=== PATIENT | female | born 2000 | race Caucasian/White ===

== ENCOUNTER 2025-01-15 13:05 | Emergency (ER) | payer OTHER, SELFPAY ==
[2025-01-15 13:08] VITALS: BP 118/86
[2025-01-15 15:05] LABS: Hematocrit 38.5 % (37.0-47.0); Hemoglobin 13.6 g/dL (12.0-16.0); Mean Corp Hgb Conc. 35.3 g/dL (33.0-37.0); Mean Corpuscular Volume 88.1 fL (81.0-99.0); Platelet Count 216 10^3/uL (130-400); Red Cell Dist. Width 11.3 % (11.5-14.5)
[2025-01-15 15:25] LABS: HCG, Serum Qualitative Screen Negative
[2025-01-15 15:30] LABS: Blood Urea Nitrogen 11 mg/dl (7-17); Calcium 9.0 mg/dl (8.4-10.2); Carbon Dioxide 26 mmol/L (22-30); Chloride 107 mmol/L (98-107); Glucose 82 mg/dl (70-99); Potassium 4.0 mmol/L (3.5-5.1); Sodium 139 mmol/L (135-145); eGFR > 60.00
[2025-01-15 15:41] VITALS: BP 113/71
--- NOTE | 2025-01-15 16:20 | ED.GENMED ---
History of Present Illness
General
Chief Complaint: Numbness
Time Seen by Provider: 01/15/25 14:25
History of Present Illness
History of Present Illness:
24-year-old female presents to the emergency department for evaluation of left leg paresthesias that have been persistent for the past 2 months, gradually worsening, with progression to left facial paresthesias today. She denies any weakness or
difficulty ambulating. Denies any vision changes, denies weight loss or night sweats. No speech difficulty chest pain or shortness of breath
Review of Systems
Review of Systems
Allergies reviewed?: Yes
All Other Systems: ROS reviewed and negative except as documented in HPI and ROS
Phy Exam
Physical Exam
Physical Exam:
GEN: Well appearing, NAD, WDWN
HEENT: Oral mucosa moist, no scleral icterus, no nasal congestion
Cardiac: Regular rate
Lung: No respiratory distress, no tachypnea
MSK: No gross deformity or injuries
Skin: Good color, no pallor or jaundice, no rashes
Neuro: AO x3; CN II-XII grossly intact. BUE strength 5/5 in all moore, sensation intact and symmetric. BLE strength 5/5 in all moore, sensation intact and symmetric
Psych: Calm, cooperative
Course
Orders/Labs/Results
Orders:
Orders
01/15/25 14:40
CT Head W/o Iv Contrast Urgent
Comment:
Reason For Exam: L facial/LLE paresthesia
01/15/25 14:49
Basic Metabolic Panel Urgent
Complete Blood Count/No Diff Urgent
Folate Urgent
HCG, Serum Qualitative Screen Urgent
TSH Reflex To Free T4 Urgent
Vitamin B12 Urgent
01/15/25 14:50
Test Result ONCE
Abnormal Lab Results
01/15/25
14:49
MCH 31.1 H pg
(27.0-31.0)
RDW 11.3 L %
(11.5-14.5)
01/15/25 14:49
01/15/25 14:49
Vital Signs
Initial and Last Documented VS:
Initial Vital Signs
Temp Pulse Resp BP Pulse Ox
98.1 F 74 18 118/86 100
01/15/25 13:08 01/15/25 13:08 01/15/25 13:08 01/15/25 13:08 01/15/25 13:08
Last Documented Vital Signs
Temp Pulse Resp BP Pulse Ox
98.1 F 68 18 113/71 100
01/15/25 13:08 01/15/25 15:41 01/15/25 15:41 01/15/25 15:41 01/15/25 16:20
MDM/Problems Addressed
MDM/Problems Addressed:
CT of the head shows no evidence for mass lesion. Labs unremarkable, patient will be advised to follow-up with primary care for brain MRI because demyelinating conditions are still in the differential
*Pulse Oximetry
SaO2: 100
Oxygen Mode of Delivery: Room air
Patient hypoxic: no
*Critical Care Note
Total Time (30-74mins, 75-104mins- exclusive of procedures): Not Applicable
ED Attending Note
-
Portions of this chart may have been created with voice recognition software.� Occasional wrong word or��sound alike� substitutions may have occurred due to the inherent limitations of voice recognition software.
Discharge Plan
Departure
Patient Disposition: Home (Routine Discharge)
Date of Disposition: 01/15/25
Time of Disposition: 16:20
Patient with high blood pressure during this ER visit?: No
Discharge Problem:
Paresthesia
Instructions: Paresthesia (DC)
Referrals:
UNKNOWN - PT DOES,NOT KNOW [Family Provider]
Activity Restrictions/Additional Instructions:
Follow up with your primary care doctor for a brain MRI
Interventions
Interventions:
*Risk Screen - Suicide Last Done: 01/15/25 13:08
*General Assessment Last Done: 01/15/25 13:08
*Neglect/Abuse Screening Last Done: 01/15/25 13:08
*ED- Fall Risk Assessment Last Done: 01/15/25 14:53
*ED COVID-19 Vaccine History Last Done: 01/15/25 14:53
*Nursing Disposition Last Done: 01/15/25 16:29
ED- Neurological Assessment Last Done: 01/15/25 14:53
Discharge Date and Time
Discharge Date/Time: 01/15/25 16:30
Print Language: GABONESE
[2025-01-15 16:34] LABS: Folate 13.1 ng/ml (2.76-20); Vitamin B12 305 pg/ml (239-931)
== END 2025-01-15 16:30 | disposition home or self-care (01) ==
LOC: EMR 13:05
PROVIDERS: Physician Assistant; EMERGENCY PHYSICIAN Emergency Medicine
DX: R20.2 Paresthesia of skin (principal); Z88.0 Allergy status to penicillin
CPT/HCPCS: 99284; 70450; 80048; 82607; 82746; 84443; 84703; 85027